=== PATIENT | male | born 1995 | race Caucasian/White ===

== ENCOUNTER 2023-09-27 07:54 | Emergency (ER) | payer SELFPAY ==
--- NOTE | ~2023-09-27 | CT_ITS ---
EXAMINATION: CT HEAD WITHOUT CONTRAST CLINICAL INFORMATION: Fall laceration left eyebrow COMPARISON: None available. TECHNIQUE: Contiguous axial imaging was performed from the skull base to vertex without intravenous administration of contrast. This CT examination was performed using dose optimization techniques as appropriate, variously including the following: *Automated exposure control *Adjustment of mA and/or kV according to patient size (this includes techniques or standardized protocols for targeted exams where dose is matched to indication/reason for exam; i.e. extremities or head) *Use of iterative reconstruction technique DLP: 682 mGy-cm FINDINGS: There is no evidence of acute intracranial hemorrhage or territorial infarction. No abnormal mass effect or midline shift is seen. [place] to white matter differentiation is well preserved. No extra-axial fluid collections are identified. The ventricles are normal in size. There is no abnormal attenuation within the brain parenchyma. Left supraorbital soft tissue defect and swelling without underlying bony defect identified. The osseous structures and soft tissues are normal. The mastoid air cells and visualized portions of the paranasal sinuses are well aerated. CT/CT head/brain wo IV con IMPRESSION: 1. No acute intracranial pathology. 2. Left supraorbital soft tissue defect and swelling without underlying bony defect identified.
[2023-09-27 07:56] VITALS: BP 114/78; PULSE 106; RESP 20; TEMP 35.7; O2SAT 97; BMI 33.6
--- NOTE | 2023-09-27 08:04 | ED.GENADULT ---
HPI - General Adult General Chief complaint: Wound/Laceration Stated complaint: Eye brow lac Time Seen by Provider: 09/27/23 08:01 Source: patient and other (friend) Mode of arrival: ambulatory Limitations: no limitations History of Present Illness HPI narrative: Patient is a 28-year-old male presenting to the emergency department with complaint of laceration to left side of forehead. Patient reports that he slipped on ice, striking his head against his truck. Patient and friend deny loss of consciousness. Patient unsure of most recent tetanus vaccine. Reports he is beginning to develop headache. Denies any blurred vision, double vision or other visual changes. Denies any nausea or vomiting. MD complaint: head injury Onset (ago): minute(s) Location: face Severity: moderate Quality: aching Treatments prior to arrival: none Related Data Previous Rx's Medication Instructions Recorded amoxicillin 875 mg-potassium 1 tab PO BID #10 tabs 09/27/23 clavulanate 125 mg tablet Allergies Allergy/AdvReac Type Severity Reaction Status Date / Time No Known Allergies Allergy Verified 09/27/23 07:58 Review of Systems Review of Systems: As per HPI Yes all other systems are reviewed and are negative [facility] Social History Social History Advance Directives: No Physical Exam ED Vital Signs: Vital Signs - 24 hr 09/27/23 07:56 Temperature 96.2 F L Pulse Rate 106 H Respiratory Rate 20 Blood Pressure 114/78 Pulse Oximetry 97 Oxygen Delivery Method Room Air BMI result Body Mass Index 33.6 Medications Administered Discontinued Medications Generic Name Dose Route Start Last Admin Trade Name Freq PRN Reason Stop Dose Admin Diphtheria/Tetanus/Acell Pertussis 0.5 ml 09/27/23 08:04 09/27/23 08:34 Diphth,Pertus(Acell),Tet Adult 0.5 Ml Syringe IM 09/27/23 08:05 0.5 ml .ONCE ONE Administration Procedures Laceration Laceration 1: Site: face Size (cm): 4.5 Description: linear Local Anesthetic: lidocaine 1% Amount of anesthesia used (mL): 10 Pre-repair: wound explored, irrigated extensively and deep structures intact Skin layer closed with: other (prolene) Size (cm): 5-0 Number of sutures: 12 Technique: simple, interrupted Subcutaneous layer closed with: chromic gut Size: 5-0 Number of sutures: 1 Medical Decision Making Medical Decision Making [facility] Narrative: Patient is a 28-year-old male presenting to the emergency department with complaint of laceration to left side of forehead. On exam patient is awake, A+Ox3, VS WNL, afebrile, normal neurological exam without focal deficits, physical exam findings as above. Given reported symptoms and physical exam findings, initial differential includes laceration, skull fracture, ICH. CT notable for no evidence of ICH, skull fracture. My interpretation is in agreement with the radiologist's interpretation. Sutures placed as per procedure note. Tdap updated. Will put patient on 5 day course of Augmentin given significance of laceration. Return precautions and wound care discussed. Patient verbalized understanding of and agreement with plan. Differential Diagnosis Differential Diagnoses: The differential diagnosis associated with the presentation includes As per MDM. Admission/Observation Consideration of admission/observation: Escalation of care including admission/observation considered Independent Interpretation I performed an independent interpretation of an: CT Scan Interpretation: No evidence of ICH or fracture Radiology Impression Discussion of test interpretation with radiology: I have reviewed the radiologist's reading. Radiologist Impression: CT/CT head/brain wo IV con IMPRESSION: 1. No acute intracranial pathology. 2. Left supraorbital soft tissue defect and swelling without underlying bony defect identified. External Record Review External record reviewed: Inpatient record, Office record and Outpatient record Prescription Management I considered prescription management with: Antibiotic Discharge Plan Discharge Clinical Impression: Facial laceration Qualifiers: Encounter type: initial encounter Qualified Code(s): S01.81XA - Laceration without foreign body of other part of head, initial encounter Patient Disposition: Home, Self-Care Instructions: Care For Your Stitches (DC), Laceration (DC), Care For Your Absorbable Stitches (ED), Stitches Removal (ED), Laceration (ED) Additional Instructions: You have been evaluated in the emergency department today for a laceration to your face. Your laceration was repaired in the emergency department with 12 sutures. You are being prescribed antibiotics to prevent infection, please take the full course as prescribed. Please keep the area surrounding the laceration clean and dry and keep dressing in place for the next 24 hours. After that please change the dressing and assess the wound daily. Keep the area out of direct sunlight for the next 6 months to help prevent scarring. You should have the sutures removed in 5-7 days. You have one absorbable stitch which will dissolve on it's own. If you develop fever, redness, swelling at the site of your laceration, or thick yellow drainage or if you develop severe headache, vision changes, or persistent vomiting please come back to the ER for a wound check. Prescriptions: New amoxicillin-pot clavulanate 875-125 mg tablet 1 tab PO BID Qty: 10 0RF Stand Alone Forms: Work/School Release
[2023-09-27] MEDS: Diphth,Pertus(ACell),Tet Adult 0.5 ML SYRINGE IM (08:34)
[2023-09-27] MEDS: Bacitracin Oint 0.9 GM PACKET 1 APPL TOPICAL (10:11)
[2023-09-27] MEDS: Acetaminophen 325 MG TABLET 975 MG PO (10:11)
[2023-09-27] MEDS: Ibuprofen 600 MG TABLET PO (10:11)
[2023-09-27] MEDS: Lidocaine HCl 1 % MPF 5 ML VIAL INFILTRATI (10:12)
[2023-09-27] MEDS: Lidocaine HCl 1 % 20 ML VIAL 30 ML INFILTRATI (10:12)
== END 2023-09-27 10:23 | disposition home or self-care (01) ==
PROVIDERS: Emergency Provider Emergency Medicine
DX: S01.81XA Laceration without foreign body of other part of head, initial encounter (principal); W00.0XXA Fall on same level due to ice and snow, initial encounter; Y93.01 Activity, walking, marching and hiking; Y92.812 Truck as the place of occurrence of the external cause; Y99.9 Unspecified external cause status; Z23 Encounter for immunization
CPT/HCPCS: 12052; 70450; 90471; 90715; 99283; 99284